=== PATIENT | female | born 1955 | race Caucasian/White ===

== ENCOUNTER → 2018-06-04 | Outpatient (CLI) | payer BC ==
[~2018-06-04] MED LIST: ASCO500; CELE200; CELE200 PO; FISH OIL 1,0001 EAC1 PO; Glucosamine &1 EACH; Glucosamine &1 EACH PO; MERIBIN5 MG; MULTI VITAMIN1 EACH; Multivitamin1 EAC1 PO; Sudogest30 MG; VITAMIN D31000 UNIT PO; Voltaren100 GM; ZYRTEC10 M1; ZYRTEC10 M1 PO
[2018-06-06 14:08] LABS: HPV 16 Negative (Negative); HPV 18 Negative (Negative); HPV OTHER HR TYPES Negative (Negative)
== END | disposition home or self-care (01) ==
LOC: LAB SHORT 19:02 → LAB 19:02
PROVIDERS: Obstetrics & Gynecology Gynecology
DX: Z12.4 Encounter for screening for malignant neoplasm of cervix (principal)
CPT/HCPCS: 87624; G0123

== ENCOUNTER 2019-01-23 11:42 | Day surgery (SDC) | payer BC ==
[~2019-01-23] VITALS: Ht 165.1 cm; Wt 60.0 kg
--- NOTE | 2019-01-23 14:27 | NUR ---
01/23/19 1427 Ximena Yuan DIVERTICULOSIS/HIGH FIBER DIET PAMPHLETS GIVEN TO THE PT.
== END 2019-01-23 14:15 | disposition home or self-care (01) ==
LOC: ORSCSDS 11:42
PROVIDERS: Internal Medicine Gastroenterology
PROC: 0DJD8ZZ Inspection of Lower Intestinal Tract, Via Natural or Artificial Opening Endoscopic (ICD-10-PCS; principal; 2019-01-23 13:00)
DX: Z12.11 Encounter for screening for malignant neoplasm of colon (principal); Z86.010 Personal history of colon polyps; K57.30 Diverticulosis of large intestine without perforation or abscess without bleeding; Z79.899 Other long term (current) drug therapy
CPT/HCPCS: J2704; J7120

== ENCOUNTER → 2019-04-11 | Outpatient (CLI) | payer BC | END | disposition home or self-care (01) | LOC: LAB SHORT 16:38 → LAB EV 16:38 | DX: N12 Tubulo-interstitial nephritis, not specified as acute or chronic (principal); B58.8 Toxoplasmosis with other organ involvement | CPT/HCPCS: 87077; 87086; 87186 ==

== ENCOUNTER → 2019-04-12 | Outpatient (CLI) | payer BC ==
[2019-04-12 11:04] LABS: BASOPHILS ABSOLUTE AUTO 0.03 K/mm3 (0.00-0.23); BASOPHILS PERCENT AUTO 0 % (0-2); EOSINOPHILS ABSOLUTE AUTO 0.15 K/mm3 (0.00-0.68); EOSINOPHILS PERCENT AUTO 2 % (0-6); Hematocrit 38.2 % (33.0-51.0); Hemoglobin 12.5 g/dL (11.5-16.0); IMMATURE GRAN ABSOLUTE AUTO 0.06 K/mm3 (0.00-0.10); IMMATURE GRAN PERCENT AUTO 1 % (0-1); LYMPHOCYTES ABSOLUTE AUTO 1.11 K/mm3 (0.84-5.20); LYMPHOCYTES PERCENT AUTO 14 % (21-46); MONOCYTES ABSOLUTE AUTO 0.91 K/mm3 (0.16-1.47); MONOCYTES PERCENT AUTO 11 % (4-13); Mean Corpuscular HGB 30.4 pg (26.0-34.0); Mean Corpuscular HGB Conc 32.7 g/dL (31.5-36.5); Mean Corpuscular Volume 93 fL (80-100); Mean Platelet Volume 11.3 fL (9.1-12.4); NEUTROPHILS ABSOLUTE AUTO 5.88 K/mm3 (1.96-9.15); NEUTROPHILS PERCENT AUTO 72 % (41-73); Platelet Count 290 K/mm3 (150-400); RDW Coefficient Variation 14.5 % (11.7-14.2); RDW Standard Deviation 48.7 fL (35.1-46.3); Red Blood Cell Count 4.11 M/mm3 (3.80-5.20); White Blood Cell Count 8.14 K/mm3 (4.00-11.30)
[2019-04-12 11:12] LABS: Alanine Aminotransfer (ALT/SGP 19 U/L (12-78); Albumin, Blood 3.7 g/dL (3.4-5.0); Albumin/Globulin Ratio 1.1 (0.8-1.8); Alk Phos 78 U/L (40-126); Anion Gap 11 mmol/L (6-16); Aspartate Aminotrans (AST/SGOT 17 U/L (12-37); Bilirubin, Total 0.4 mg/dL (0.1-1.0); Blood Urea Nitrogen 12 mg/dL (8-24); Bun/Creatinine Ratio 17.1 (12.0-20.0); CO2, Blood 26 mmol/L (21-32); Calcium, Blood 9.3 mg/dL (8.5-10.1); Chloride, Blood 105 mmol/L (98-108); Globulin, Blood 3.5 g/dL (2.2-4.0); Glomerular Filtration Rate >60 (60-); Glucose, Blood 84 mg/dL (70-99); Potassium, Blood 4.6 mmol/L (3.5-5.5); Sodium, Blood 142 mmol/L (136-145); Total Protein, Blood 7.2 g/dL (6.4-8.2)
== END | disposition home or self-care (01) ==
LOC: LAB SHORT 10:51 → LAB EV 10:51
PROVIDERS: General Practice
DX: B58.8 Toxoplasmosis with other organ involvement (principal)
CPT/HCPCS: 80053; 85025

== ENCOUNTER → 2019-10-31 | Outpatient (CLI) | payer BC | LOC: LAB EV 17:23 → LAB SHORT 17:23 | DX: N12 Tubulo-interstitial nephritis, not specified as acute or chronic (principal) | CPT/HCPCS: 87077; 87086; 87186 ==

== ENCOUNTER → 2020-01-20 | Outpatient (CLI) | payer BC ==
[2020-01-20 16:26] LABS: Source, Urine Clean Catch
[2020-01-20 17:24] LABS: Appearance, Urine Clear (Clear); Bilirubin, Urine Neg (Neg); Blood, Urine Neg (Neg); Color, Urine Yellow (P-Yellow); Glucose Qualitative, Urine Neg (Neg); Ketones, Urine Neg (Neg); Leukocyte Esterase, Urine Neg (Neg); Nitrite, Urine Neg (Neg); Protein, Urine Neg (Neg); Urobilinogen, Urine NORM (Normal)
== END | disposition home or self-care (01) ==
LOC: LAB 16:20 → LAB SHORT 16:20
PROVIDERS: Obstetrics & Gynecology
DX: Z09 Encounter for follow-up examination after completed treatment for conditions other than malignant neoplasm (principal); Z87.440 Personal history of urinary (tract) infections
CPT/HCPCS: 81003

== ENCOUNTER → 2020-02-18 | Outpatient (CLI) | payer BC ==
[2020-02-18 11:16] LABS: BASOPHILS ABSOLUTE AUTO 0.04 K/mm3 (0.00-0.23); BASOPHILS PERCENT AUTO 1 % (0-2); EOSINOPHILS ABSOLUTE AUTO 0.16 K/mm3 (0.00-0.68); EOSINOPHILS PERCENT AUTO 3 % (0-6); Hemoglobin 13.3 g/dL (11.5-16.0); IMMATURE GRAN ABSOLUTE AUTO 0.01 K/mm3 (0.00-0.10); IMMATURE GRAN PERCENT AUTO 0 % (0-1); LYMPHOCYTES ABSOLUTE AUTO 0.99 K/mm3 (0.84-5.20); LYMPHOCYTES PERCENT AUTO 18 % (21-46); MONOCYTES PERCENT AUTO 14 % (4-13); Mean Corpuscular HGB 30.8 pg (26.0-34.0); Mean Corpuscular HGB Conc 33.3 g/dL (31.5-36.5); Mean Corpuscular Volume 93 fL (80-100); Mean Platelet Volume 10.7 fL (9.1-12.4); NEUTROPHILS ABSOLUTE AUTO 3.57 K/mm3 (1.96-9.15); NEUTROPHILS PERCENT AUTO 64 % (41-73); Platelet Count 299 K/mm3 (150-400); RDW Coefficient Variation 13.6 % (11.7-14.2); RDW Standard Deviation 46.5 fL (35.1-46.3); Red Blood Cell Count 4.32 M/mm3 (3.80-5.20); White Blood Cell Count 5.57 K/mm3 (4.00-11.30)
[2020-02-18 11:52] LABS: Alanine Aminotransfer (ALT/SGP 30 U/L (12-78); Alk Phos 68 U/L (40-126); Amylase, Blood 47 U/L (25-115); Anion Gap 9 mmol/L (6-16); Aspartate Aminotrans (AST/SGOT 17 U/L (12-37); Bilirubin, Total 0.3 mg/dL (0.1-1.0); Blood Urea Nitrogen 11 mg/dL (8-24); Bun/Creatinine Ratio 13.9 (12.0-20.0); CO2, Blood 27 mmol/L (21-32); Calcium, Blood 9.8 mg/dL (8.5-10.1); Chloride, Blood 102 mmol/L (98-108); Creatinine, Blood 0.79 mg/dL (0.40-1.00); Globulin, Blood 4.1 g/dL (2.2-4.0); Glomerular Filtration Rate >60 (60-); Glucose, Blood 99 mg/dL (70-99); Potassium, Blood 4.2 mmol/L (3.5-5.5); Sodium, Blood 138 mmol/L (136-145); Total Protein, Blood 8.1 g/dL (6.4-8.2)
== END | disposition home or self-care (01) ==
LOC: LAB SHORT 11:09 → LAB EV 11:09
PROVIDERS: General Practice
DX: R10.32 Left lower quadrant pain (principal)
CPT/HCPCS: 80053; 82150; 85025

== ENCOUNTER → 2020-02-19 | Outpatient (CLI) | payer BC ==
[2020-02-21 01:05] LABS: ADENOVIRUS F 40/41 Not Detected (Not Detected); ASTROVIRUS Not Detected (Not Detected); C DIFFICILE TOXIN A/B Not Detected (Not Detected); CAMPYLOBACTER Not Detected (Not Detected); CRYPTOSPORIDIUM Not Detected (Not Detected); CYCLOSPORA CAYETANENSIS Not Detected (Not Detected); ENTAMOEBA HISTOLYTICA Not Detected (Not Detected); ENTEROAGGREGATIVE E COLI Not Detected (Not Detected); ENTEROPATHOGENIC E COLI Not Detected (Not Detected); ENTEROTOXIGENIC E COLI Not Detected (Not Detected); GIARDIA LAMBLIA Not Detected (Not Detected); NOROVIRUS GI/GII Not Detected (Not Detected); PLESIOMONAS SHIGELLOIDES Not Detected (Not Detected); ROTAVIRUS A Not Detected (Not Detected); SALMONELLA Not Detected (Not Detected); SAPOVIRUS Not Detected (Not Detected); SHIGA-TOXIN-PRODUCING E COLI Not Detected (Not Detected); SHIGELLA/ENTEROINVASIVE E COLI Not Detected (Not Detected); VIBRIO Not Detected (Not Detected); VIBRIO CHOLERAE Not Detected (Not Detected); YERSINIA ENTEROCOLITICA Not Detected (Not Detected)
== END | disposition home or self-care (01) ==
LOC: LAB SHORT 08:31 → LAB EV 08:31
PROVIDERS: General Practice
DX: K52.9 Noninfective gastroenteritis and colitis, unspecified (principal)
CPT/HCPCS: 0097U

== ENCOUNTER 2020-04-12 00:42 | Emergency (ER) | payer BC ==
[~2020-04-12] VITALS: Ht 165.1 cm; Wt 61.2 kg
[~2020-04-12 00:42] MED LIST changes: -ZYRTEC10 M1 PO
[2020-04-12 01:21] LABS: BASOPHILS ABSOLUTE AUTO 0.03 K/mm3 (0.00-0.23); BASOPHILS PERCENT AUTO 1 % (0-2); EOSINOPHILS ABSOLUTE AUTO 0.32 K/mm3 (0.00-0.68); EOSINOPHILS PERCENT AUTO 6 % (0-6); Hematocrit 39.6 % (33.0-51.0); Hemoglobin 13.1 g/dL (11.5-16.0); IMMATURE GRAN ABSOLUTE AUTO 0.01 K/mm3 (0.00-0.10); IMMATURE GRAN PERCENT AUTO 0 % (0-1); LYMPHOCYTES ABSOLUTE AUTO 1.51 K/mm3 (0.84-5.20); LYMPHOCYTES PERCENT AUTO 27 % (21-46); MONOCYTES PERCENT AUTO 18 % (4-13); Mean Corpuscular HGB 30.5 pg (26.0-34.0); Mean Corpuscular HGB Conc 33.1 g/dL (31.5-36.5); Mean Corpuscular Volume 92 fL (80-100); Mean Platelet Volume 10.6 fL (9.1-12.4); NEUTROPHILS ABSOLUTE AUTO 2.81 K/mm3 (1.96-9.15); NEUTROPHILS PERCENT AUTO 50 % (41-73); Platelet Count 293 K/mm3 (150-400); RDW Coefficient Variation 13.6 % (11.7-14.2); RDW Standard Deviation 46.2 fL (35.1-46.3); Red Blood Cell Count 4.29 M/mm3 (3.80-5.20); White Blood Cell Count 5.68 K/mm3 (4.00-11.30)
[2020-04-12] MEDS ORDERED: AMOCLA875 PO (01:28)
[2020-04-12 01:38] LABS: Alanine Aminotransfer (ALT/SGP 21 U/L (12-78); Albumin, Blood 3.4 g/dL (3.4-5.0); Alk Phos 62 U/L (50-136); Anion Gap 5 mmol/L (6-16); Aspartate Aminotrans (AST/SGOT 12 U/L (12-37); Bilirubin, Total 0.2 mg/dL (0.1-1.0); Blood Urea Nitrogen 19 mg/dL (8-24); Bun/Creatinine Ratio 22.1 (12.0-20.0); CO2, Blood 27 mmol/L (21-32); Calcium, Blood 8.8 mg/dL (8.5-10.1); Chloride, Blood 107 mmol/L (98-108); Creatinine, Blood 0.86 mg/dL (0.40-1.00); Globulin, Blood 3.3 g/dL (2.2-4.0); Glomerular Filtration Rate >60 (60-); Glucose, Blood 103 mg/dL (70-99); Potassium, Blood 3.8 mmol/L (3.5-5.5); Sodium, Blood 139 mmol/L (136-145); Total Protein, Blood 6.7 g/dL (6.4-8.2); Troponin I <0.015 ng/mL (0.000-0.040)
[2020-04-12] MEDS ORDERED: AMOX-CLAV 875-1 EAC3 PO (21:31)
[2020-04-12] MEDS ORDERED: TIZANIDINE HCL2 M3 PO (21:33)
[2020-04-12] MEDS ORDERED: ZYRTEC10 M1 PO (21:58)
== END 2020-04-12 03:54 | disposition home or self-care (01) ==
LOC: ER 00:42
PROVIDERS: Emergency Medicine
DX: G43.109 Migraine with aura, not intractable, without status migrainosus (principal); Z79.899 Other long term (current) drug therapy; Z88.8 Allergy status to other drugs, medicaments and biological substances
CPT/HCPCS: 70470; 70496; 70498; 80053; 84484; 85025; 93005; 93010; 96365; 96366; 96372-59; 96375; 99285-25; J1200; J3030; J3475; J7030; Q9967

== ENCOUNTER 2020-04-12 09:38 | Emergency (ER) | payer BC ==
[~2020-04-12] VITALS: Ht 165.1 cm; Wt 59.0 kg
[~2020-04-12 09:38] MED LIST changes: +AMOCLA875 PO
[2020-04-12 10:39] LABS: BASOPHILS ABSOLUTE AUTO 0.03 K/mm3 (0.00-0.23); BASOPHILS PERCENT AUTO 1 % (0-2); EOSINOPHILS ABSOLUTE AUTO 0.06 K/mm3 (0.00-0.68); EOSINOPHILS PERCENT AUTO 1 % (0-6); Hematocrit 42.1 % (33.0-51.0); Hemoglobin 14.1 g/dL (11.5-16.0); IMMATURE GRAN ABSOLUTE AUTO 0.02 K/mm3 (0.00-0.10); IMMATURE GRAN PERCENT AUTO 0 % (0-1); LYMPHOCYTES ABSOLUTE AUTO 0.93 K/mm3 (0.84-5.20); LYMPHOCYTES PERCENT AUTO 15 % (21-46); MONOCYTES ABSOLUTE AUTO 0.66 K/mm3 (0.16-1.47); MONOCYTES PERCENT AUTO 11 % (4-13); Mean Corpuscular HGB 30.9 pg (26.0-34.0); Mean Corpuscular HGB Conc 33.5 g/dL (31.5-36.5); Mean Corpuscular Volume 92 fL (80-100); Mean Platelet Volume 10.7 fL (9.1-12.4); NEUTROPHILS ABSOLUTE AUTO 4.53 K/mm3 (1.96-9.15); NEUTROPHILS PERCENT AUTO 73 % (41-73); Platelet Count 292 K/mm3 (150-400); RDW Coefficient Variation 13.7 % (11.7-14.2); RDW Standard Deviation 46.6 fL (35.1-46.3); Red Blood Cell Count 4.57 M/mm3 (3.80-5.20); White Blood Cell Count 6.23 K/mm3 (4.00-11.30)
[2020-04-12 10:40] LABS: Calcium, Ionized (POC) 1.16 mmol/L (1.10-1.46); Chloride (POC) 104 mmol/L (98-108); Creatinine (POC) 0.6 mg/dL (0.6-1.0); Glucose (ISTAT POC) 102 mg/dL (70-99); Hemoglobin (POC) 14.3 g/dL (12.0-16.0); Potassium (POC) 3.9 mmol/L (3.5-5.5); Sodium (POC) 139 mmol/L (135-148); Total CO2 (POC) 23 mmol/L (21-32)
[2020-04-12 11:01] LABS: Alanine Aminotransfer (ALT/SGP 22 U/L (12-78); Albumin, Blood 3.7 g/dL (3.4-5.0); Alk Phos 67 U/L (50-136); Anion Gap 5 mmol/L (6-16); Aspartate Aminotrans (AST/SGOT 16 U/L (12-37); Bilirubin, Total 0.3 mg/dL (0.1-1.0); Blood Urea Nitrogen 13 mg/dL (8-24); Bun/Creatinine Ratio 19.7 (12.0-20.0); CO2, Blood 27 mmol/L (21-32); Chloride, Blood 108 mmol/L (98-108); Creatinine, Blood 0.66 mg/dL (0.40-1.00); Globulin, Blood 3.6 g/dL (2.2-4.0); Glomerular Filtration Rate >60 (60-); Glucose, Blood 95 mg/dL (70-99); Potassium, Blood 3.9 mmol/L (3.5-5.5); Sodium, Blood 140 mmol/L (136-145); Total Protein, Blood 7.3 g/dL (6.4-8.2)
[2020-04-12] MEDS ORDERED: AMOX-CLAV 875-1 EAC3 PO (21:31)
[2020-04-12] MEDS ORDERED: TIZANIDINE HCL2 M3 PO (21:33)
[2020-04-12] MEDS ORDERED: ZYRTEC10 M1 PO (21:58)
== END 2020-04-12 12:10 | disposition home or self-care (01) ==
LOC: ER 09:38
PROVIDERS: Emergency Medicine
DX: G43.409 Hemiplegic migraine, not intractable, without status migrainosus (principal); Z88.8 Allergy status to other drugs, medicaments and biological substances; Z79.899 Other long term (current) drug therapy
CPT/HCPCS: 36415; 80047; 80053; 85014; 85025; 93005; 93010; 96361; 96374; 96375; 99284-25; J0780; J1100; J7030

== ENCOUNTER 2020-04-12 20:34 | Inpatient (IN) | payer BC ==
[~2020-04-12] VITALS: Ht 165.1 cm; Wt 66.6 kg
[2020-04-12 21:17] LABS: BASOPHILS PERCENT AUTO 0 % (0-2); EOSINOPHILS PERCENT AUTO 0 % (0-6); Hematocrit 42.6 % (33.0-51.0); Hemoglobin 14.2 g/dL (11.5-16.0); IMMATURE GRAN ABSOLUTE AUTO 0.01 K/mm3 (0.00-0.10); IMMATURE GRAN PERCENT AUTO 0 % (0-1); LYMPHOCYTES ABSOLUTE AUTO 0.52 K/mm3 (0.84-5.20); LYMPHOCYTES PERCENT AUTO 7 % (21-46); MONOCYTES ABSOLUTE AUTO 0.13 K/mm3 (0.16-1.47); MONOCYTES PERCENT AUTO 2 % (4-13); Mean Corpuscular HGB 30.4 pg (26.0-34.0); Mean Corpuscular HGB Conc 33.3 g/dL (31.5-36.5); Mean Corpuscular Volume 91 fL (80-100); Mean Platelet Volume 10.6 fL (9.1-12.4); NEUTROPHILS ABSOLUTE AUTO 7.31 K/mm3 (1.96-9.15); NEUTROPHILS PERCENT AUTO 92 % (41-73); Platelet Count 322 K/mm3 (150-400); RDW Coefficient Variation 13.8 % (11.7-14.2); RDW Standard Deviation 46.8 fL (35.1-46.3); Red Blood Cell Count 4.67 M/mm3 (3.80-5.20); White Blood Cell Count 7.97 K/mm3 (4.00-11.30)
[2020-04-12] MEDS ORDERED: AMOX-CLAV 875-1 EAC3 PO (21:31)
[2020-04-12] MEDS ORDERED: TIZANIDINE HCL2 M3 PO (21:33)
[2020-04-12 21:38] LABS: Alanine Aminotransfer (ALT/SGP 23 U/L (12-78); Albumin, Blood 3.9 g/dL (3.4-5.0); Albumin/Globulin Ratio 1.1 (0.8-1.8); Alk Phos 70 U/L (50-136); Anion Gap 9 mmol/L (6-16); Aspartate Aminotrans (AST/SGOT 16 U/L (12-37); Bilirubin, Total 0.3 mg/dL (0.1-1.0); Blood Urea Nitrogen 15 mg/dL (8-24); Bun/Creatinine Ratio 25.5 (12.0-20.0); CO2, Blood 23 mmol/L (21-32); Calcium, Blood 9.7 mg/dL (8.5-10.1); Chloride, Blood 111 mmol/L (98-108); Creatinine, Blood 0.59 mg/dL (0.40-1.00); Globulin, Blood 3.6 g/dL (2.2-4.0); Glomerular Filtration Rate >60 (60-); Glucose, Blood 164 mg/dL (70-99); Potassium, Blood 3.8 mmol/L (3.5-5.5); Sodium, Blood 143 mmol/L (136-145); Total Protein, Blood 7.5 g/dL (6.4-8.2)
[2020-04-12] MEDS ORDERED: ZYRTEC10 M1 PO (21:58)
[2020-04-13 05:16] LABS: BASOPHILS PERCENT AUTO 0 % (0-2); EOSINOPHILS PERCENT AUTO 0 % (0-6); Hemoglobin 13.4 g/dL (11.5-16.0); IMMATURE GRAN ABSOLUTE AUTO 0.02 K/mm3 (0.00-0.10); IMMATURE GRAN PERCENT AUTO 0 % (0-1); LYMPHOCYTES ABSOLUTE AUTO 0.47 K/mm3 (0.84-5.20); LYMPHOCYTES PERCENT AUTO 7 % (21-46); MONOCYTES ABSOLUTE AUTO 0.13 K/mm3 (0.16-1.47); MONOCYTES PERCENT AUTO 2 % (4-13); Mean Corpuscular HGB 30.2 pg (26.0-34.0); Mean Corpuscular HGB Conc 32.7 g/dL (31.5-36.5); Mean Corpuscular Volume 92 fL (80-100); Mean Platelet Volume 10.6 fL (9.1-12.4); NEUTROPHILS PERCENT AUTO 91 % (41-73); Platelet Count 269 K/mm3 (150-400); RDW Coefficient Variation 13.7 % (11.7-14.2); Red Blood Cell Count 4.44 M/mm3 (3.80-5.20); White Blood Cell Count 6.92 K/mm3 (4.00-11.30)
[2020-04-13 05:36] LABS: Anion Gap 5 mmol/L (6-16); Blood Urea Nitrogen 17 mg/dL (8-24); Bun/Creatinine Ratio 25.9 (12.0-20.0); CO2, Blood 26 mmol/L (21-32); Calcium, Blood 9.7 mg/dL (8.5-10.1); Chloride, Blood 110 mmol/L (98-108); Creatinine, Blood 0.66 mg/dL (0.40-1.00); Glomerular Filtration Rate >60 (60-); Glucose, Blood 151 mg/dL (70-99); Potassium, Blood 4.3 mmol/L (3.5-5.5); Sodium, Blood 141 mmol/L (136-145)
--- NOTE | 2020-04-13 07:47 | NUR ---
04/13/20 0545 PT SLEEPING SINCE BEING MEDICATED WITH PAIN MED FOR NECK AND POSTERIOR HEAD PAIN. ONLY TAKING SIPS OF FLUIDS ORALLY. VITALS STABLE. NO CHANGE IN NEURO STATUS THIS AM. CALL REY WITHIN REACH AND BED ALARM ON. VOIDED SMALL AMT OF URINE IN BEDPAN. HEART MONITOR AND PULSE OXIMETER WITHIN NORMAL LIMITS.
--- NOTE | 2020-04-13 13:00 | NUR ---
SPEECH EVALUATION: SPOKE WITH DR. LAGUNAS ABOUT THE PATIENT AND HUSBANDS REPORT THAT SHE HAS HAD DIFFICULTY SWALLOWING AT HOME AND WILL COUGH ON HER SPIT AND WATER. PATIENT CONTINUES TO HAVE A LEFT SIDED DROOP. PATIENT IS ABLE TO MOVE TONGUE SIDE TO SIDE WITHOUT DIFFICULTY. DISCUSSED THIS INFORMATION WITH DR. LAGUNAS. NEW ORDER FOR SWALLOW EVALUATION.
[2020-04-13 13:42] LABS: CHOL/HDL RATIO 4.9; Cholesterol 255 mg/dL (50-200); HDL Cholesterol 52 mg/dL (>39); LDL/HDL RATIO 3.5; Low Density Lipoprotein Chol 180 mg/dL (0-110); Triglycerides 114 mg/dL (30-160); Very Low Density Lipoprot Chol 22 mg/dL (6-32)
--- NOTE | 2020-04-13 15:31 | NUR ---
Bladder scan amount was [id number]
--- NOTE | 2020-04-13 15:34 | NUR ---
echocardiogram complete
--- NOTE | 2020-04-13 19:31 | NUR ---
END OF SHIFT SUMMARY: PATIENT DENIED PAIN THROUGHOUT SHIFT. PATIENT CONTINUED TO HAVE NO MOVEMENT IN THE LEFT ARM AND LEFT LEG THROUGHOUT THE SHIFT. PATIENT REPORTED SHE COULD FEEL THE RN'S COLD HANDS ONLY ON THE EXTREMITIES. PATIENT CONTINUED TO HAVE LEFT SIDED DROOP OF THE FACE. PATIENT ABLE TO SPEAK WITH A SLURRED SPEECH. SHE IS ALERT AND ORIENTED. PATIENT IS ANXIOUS AND TEARFUL AT TIMES RELATED TO HER SITUATION. PROVIDED ENCOURAGEMENT AND SUPPORT. PATIENT FOLLOWED NEW SWALLOW PRECAUTIONS WITHOUT DIFFICULTY. SPOKE WITH DR. LAGUNAS MULTIPLE TIMES TO DISCUSS ORDERS. (SEE ORDER LIST). DR. GRIFFIN ROUNDED ON THE PATIENT THIS EVENING. BOTH THE PATIENT AND ARE VERY APPRECIATIVE OF THE CARE RECEIVED HERE. PATIENT WANTED TO MAKE SURE THAT IT WAS KNOWN THAT SHE USES A VAGINAL HORMONE CREAM AT HOME. NIGHT RN FERCHO MUJICA.
--- NOTE | 2020-04-14 04:58 | NUR ---
SHIFT SUMMARY: VSS. AFEB. AAOX3. SPEECH SLIGHTLY SLURRED. L UPPER AND LOWER EXTREMITY FLACCID. DENIES N/T. PERRL. EYES TRACK OBJECTS AND PT DENIES VISION CHANGES. SWALLOWED MEDS IN APPLESAUCE AND WATER WITHOUT COUGHING. MED X 1 FOR HEADACHE AFFECTING BACK OF HEAD AND NECK. PT APPEARS TO BE SLEEPING CURRENTLY. UP TO BSC W/2 MAX ASSIST, PIVOTING ON R FOOT, GAIT BELT. BED ALARM ON, CALL BUTTON IN REACH. CALLING APPROPRIATELY. WILL CONT TO MONITOR.
[2020-04-14] MEDS ORDERED: ESTRADIOL42.5 GM VAG (06:34)
--- NOTE | 2020-04-14 09:57 | NUR ---
Permission for care Patient gave Julianne Chacon. SRN, permission to assist with care on 04/14/2020.
--- NOTE | 2020-04-14 16:21 | NUR ---
SUMMARY PT IS A/O X4. DX CVA. SARAH, L FACIAL DROOP, SPEECH THICK/SLURRED. MINIMAL GROSS MOVEMENT L ARM, FLACCID L LEG. SHE IS ABLE TO STAND/PIVOT [address] [facility] THIS AM, NO CHANGE CONTINUES SOFT DIET w THIN LIQUIDS, SHE NEEDS SUPERVISION w MEALS. SHE PARTICIPATED w PHYTHER TODAY. POSITIVE, PLEASANT AFFECT. @ BEDSIDE T/O DAY. VSS.
--- NOTE | 2020-04-15 05:15 | NUR ---
SHIFT SUMMARY: VSS. AFEB. AAOX3. ABLE TO COMMUNICATE NEEDS. NEURO CHECKS UNCHANGED FROM YESTERDAY. CONT W/ FLACCID L UPPER AND LOWER EXTREMITIES. SLIGHT MOVEMENT AT THE SHOULDER AND THE HIP. DENIES N/T IN EXT. REPORTS TINGLING IN L SIDE OF FACE. SPEECH CONT TO BE SLIGHTLY SLURRED BUT COMPREHENSIBLE. PERRL, ABLE TO TRACK OBJECTS. DENIES HEADACHE. DYSPHAGIA PRECAUTIONS IN PLACE, NO COUGHING W/ PO INTAKE. LSCTA. CONTINENT. T/F W/ 2 MAX ASSIST TO BSC. NO ACUTE CHANGES TONIGHT. WILL CONT TO MONITOR.
--- NOTE | 2020-04-15 07:45 | NUR ---
ASSUMED CARE OF PT- BEDSIDE REPORT COMPLETED WITH NIGHT RN PHILIP. PER REPORT PT ADMITTED FOR NEW CVA. PT IS A 2P MAX ASSIST TO THE BEDSIDE COMMODE, PT CAN ONLY VOID WHEN STAFF ASSIST HER TO BSC. STRAIGHT CATH ORDER FOR BLADDER SCAN VOL GREATER THAN 500ML. PT HAS LEFT SIDED WEAKNESS LEFT FACIAL DROOP AND SOME SLIGHTLY SLURRED SPEACH. PT AWAKE AND PARTICIPATED IN BEDSID REPORT. PT ON TELE AND HAS IVF RUNNING IN THE RIGHT AC. CALL LIGHT IN REACH, ASSISTED TO BSC AT SHIFT CHANGE. NO S&S OF DIOSTRESS NOTED AT THIS TIME WILL CTM.
--- NOTE | 2020-04-15 19:42 | NUR ---
SHIFT SUMMARY- PT ALERT AND ORIENTED, SPOUSE AT THE BEDSIDE IS VERY INVOLVED IN THE PT CARE. PT HAS SHOWN SOME IMPROVEMENT WITH HER MOVEMENT OF THE LEFT SIDE OF HER BODY ACHIEVINE GROSS MOTOR MOVEMENT FOR THE UPPER PART OF EACH. Q4 NEURO CHECKS COMPLETED. PT HAS DENIED THE NEED FOR PAIN MEDICATION T/O THE SHIFT. DR LAGUNAS CAME TO SEE THE PT. PT STATED IT WAS OK FOR HER TO TAKE HER VITAMINS, DR DID NOT ORDER THEM YET. PT STATED IN BEDSIDE REPORT SHE TOOK THEM. NO VERBAL ORDER FROM THE DR FOR THEM EITHER. NIGHT RN AWARE. BEDSIDE REPORT COMPLETED WITH NIGHT RN CARE ROUNDING COMPLETED AT THIS TIME WELL.
--- NOTE | 2020-04-16 04:09 | NUR ---
SHIFT SUMMARY A/O, ABLE TO MAKE NEEDS KNOWN. COOPERATIVE WITH CARE. CALLS AND ANSWERS QUESTIONS APPROPRIATELY. NO C/O PAIN/DISCOMFORT. NEW IV TO RFA PLACED. MAX ASSIST STAND PIVOT TO BSC. SLIGHT GROSS MOVEMENT TO L SIDED EXTREMITIES. NO ACUTE CHANGES NOTED. VSS/AFEBRILE. TELE RUNNING SR IN 80's. BED REAMINS IN LOWEST POSITION. CALL LIGHT AND BELONGINGS WITHIN REACH. WCTM. REPORT TO ONCOMING RN.
--- NOTE | 2020-04-16 17:52 | NUR ---
SHIFT SUMMARY- PT ALERT AND ORIENTED 2P MAX ASSIST WITH TRANSFERS. PT CONTINENT OF BLADDER, PT HAS NOT HAD A BM SINCE HER ADMIT ON SATURDAY. WILL TALK TO DR TOMORROW IF THE PT HAS STILL NOT HAD A BM. WILL ATTEMPT TO PROVIDE THE PT WITH PRUNE JUICE THIS EVENING. PT SPOUSE HAS BEEN AT THE BEDSIDE NON STOP MUCH POSSIBLE AND IS A GOOD SUPPORTER FOR THE PT TO IMPROVE. PT HAS DENIED THE NEED FOR PAIN MEDICATION. SHE HAS DEVELOPED SOME GROSS MOTOR MOVEMENT OF BOTH EXTREMITIES. PT CAN ADDUCT THE LEFT ARM NOW WHERE SHE COULD NOT YESTERDAY. PT CAN SHRUG THE LEFT SHOULDER TODAY WELL. LEFT LEG CAN OCCASSIONALLY BEAR WEIGHT WELL. MOST OF THE TIME PT IS UNABLE TO BEAR WEIGHT ON THAT LEG THOUGH. PT HAS BEEN TEARFUL TODAY BUT SEEMS TO BE IN GOOD SPIRITS. PT IS CURRENTLY UP IN THE RECLINER WITH HER CALL LIGHT IN REACH AND SPOUSE AT HER SIDE.
--- NOTE | 2020-04-17 03:43 | NUR ---
SHIFT SUMMARY A/O, ABLE TO MAKE NEEDS KNOWN. COOPERATIVE WITH CARE. CALLS AND ANSWERS QUESTIONS APPROPRIATELY. NO C/O PAIN/DISCOMFORT. APPEARED TO REST OFF AND ON T/O NIGHT. APPEARS TO BE GAINING STRENGTH TO L SIDE. REQUIRES 2P STAND/PIVOT ASSIST WITH GAIT BELT TO BSC. VSS/AFEBRILE. NO ACUTE CHANGES NOTED. BED REAMINED IN LOWEST POSITION. CALL LIGHT AND BELONGINGS WITHIN REACH. WCTM. REPORT TO ONCOMING RN.
--- NOTE | 2020-04-17 18:46 | NUR ---
SHIFT SUMMARY- PT ALERT AND ORIENTED, RECIEVED A FULL BED BATH TODAY ABX COMPLETED PER DR JANNETH WALL STATED 10 DAY CORSE WITH START DATE OF 04-06-20. TELE DC'D. PT AWAITING PLACEMENT IN IRU IN [place]. SPOUSE IS AWARE AND IS WILLING TO DO ANYTHING THE PT NEEDS, HOWEVER THE PT IS RELUCTANT TO ASK HIM FOR ANY HELP. PT IS A 2P MAX ASSIST WITH TRANSFERS TO THE RECLINER AND BSC. PT C/O BACK PAIN THIS MORNING PROVIDED HER WITH PRUNE JUICE APPLEJUICE AND BUTTER COCKTAIL AND THE PT HAD A SOLID STOOL A RESULT. MEDICATED WITH TYLENOL WELL. PT STATED IT IS MUCH BETTER NOW. PT RECIEVED A FULL BED BATH TODAY.
--- NOTE | 2020-04-18 03:44 | NUR ---
SHIFT SUMMARY A/O, ABLE TO MAKE NEEDS KNOWN. COOPERATIVE WITH CARE. CALLS AND ANSWERS QUESTIONS APPROPRIATELY. NO C/O DISCOMFORT TO BACK; MEDICATED PER EMAR. APPEARED TO REST OFF AND ON T/O NIGHT. CONTINUES TO REQUIRE 2P STAND/PIVOT MAX ASSIST TO BSC/CHAIR. EAGER FOR TRANSFER TO IRU FOR STROKE REHAB. NO ACUTE CHANGES NOTED. BED REMAINS IN LOWEST POSITION. CALL LIGHT AND BELONGINGS WITHIN REACH. WCTM. REPORT TO ONCSAVI RN.
[2020-04-18 15:15] LABS: Influenza A, PCR Negative (NEGATIVE); Influenza B, PCR Negative (NEGATIVE); Resp Syncytial Virus, PCR Negative (NEGATIVE); SARS-Cov-2 (COVID-19) PCR, MMC Negative (NEGATIVE)
--- NOTE | 2020-04-18 18:38 | NUR ---
SHIFT SUMMARY TENNILLE COMPLAINED OF PAIN IN HER NECK, GOT HEAT PACK AND TYLENOL TO GOOD EFFECT. TOOK PILLS IN APPLESAUCE ONE AT A TIME. UP TO CHAIR FOR MEALS. UP TO BSC WITH AO2 AND GAIT BELT. VISITED MOST OF THE DAY. HAD CAROTID ULTRASOUND. CALL LIGHT IN REACH, [facility]
--- NOTE | 2020-04-19 04:55 | NUR ---
SHIFT SUMMARY NO ACUTE CHANGES THIS SHIFT. AOX4. L FACIAL DROOP, L SIDE WEAKNESS, L ARM FLACCID-ABLE TO GROSSLY MOVE L ARM c RIGHT HAND, REPORTS SHE HAS GROSS MOVEMENT c LLE WHILE LYING IN BED. DENIES N/V, DYSPNEA. REPORTS GENERALIZED CHRONIC PAIN FROM ARTHRITIS, MEDICATED c CELEBREX PER ORDERS & STATES RELIEF. MAX 2 ASSIST c GAIT BELT. TOOK PILLS WHOLE 1 @ A TIME IN APPLESAUCE. PLAN TO DC TODAY TO REHAB FACILITY. CALL LIGHT IN REACH. WCTM.
[2020-04-19] MEDS ORDERED: ASPI81CH PO (11:53)
[2020-04-19] MEDS ORDERED: ATOR40TA PO (11:53)
--- NOTE | 2020-04-19 18:49 | NUR ---
SHIFT SUMMARY PT IS AOX4 AND PLEASANT. PT DENIES PAIN, N/V, SOB. PT IS A TWO PERSON ASSIST FOR TRANSFERS. PHYSICAL THERAPY WORKED WITH PT TODAY. PLAN IS TO DC/TRANSFER TO [facility] TOMORROW MORNING. PT VISITED TODAY. PT IN CHAIR FOR MAJORITY OF SHIFT. PT CURRENTLY IN CHAIR, CALL LIGHT IN REACH.
--- NOTE | 2020-04-20 04:34 | NUR ---
SHIFT SUMMARY NO ACUTE CHANGES THIS SHIFT. AOX4. VSS, AFEBRILE. L ARM FLACCID. HAS GROSS MOVEMENT c LLE WHILE LYING IN BED. MAX 2 ASSIST c GAIT BELT FOR TRANSFERS. PLAN TO DC TO [facility] THIS AM AROUND 0900. CALL LIGHT IN REACH & PT ABLE TO MAKE NEEDS KNOWN.
--- NOTE | 2020-04-20 09:58 | NUR ---
REPORT CALLED TO RN AT [facility]HAB [facility]ENTER
== END 2020-04-20 09:14 | DRG 65 ==
LOC: ER 20:34 → MEDS 20:35 → ENPENDDIS 04-19 12:39 → MEDS 04-20 09:14
PROVIDERS: Emergency Medicine; Internal Medicine; Nurse Practitioner Acute Care; ADMIT Internal Medicine
DX: I63.9 Cerebral infarction, unspecified (principal); G81.94 Hemiplegia, unspecified affecting left nondominant side; R29.810 Facial weakness; E78.5 Hyperlipidemia, unspecified; I10 Essential (primary) hypertension; K52.9 Noninfective gastroenteritis and colitis, unspecified; R47.1 Dysarthria and anarthria; Z91.14 Patient's other noncompliance with medication regimen; E78.00 Pure hypercholesterolemia, unspecified; G43.61 Persistent migraine aura with cerebral infarction, intractable
CPT/HCPCS: 0241U; 36415; 70551; 80048; 80053; 80061; 82947; 83036; 85025; 92526; 92610; 93306; 93880; 94762; 96372; 96374; 96375; 97110; 97112; 97116; 97163; 97166; 97530; 97535; 99284-25; A9270; A9270-GY; G0378; J0780; J1100; J1170; J1200; J1650; J1885; J7030

== ENCOUNTER → 2023-12-20 | Outpatient (CLI) | payer MEDICARE ==
[~2023-12-20] MED LIST changes: +AMOX-CLAV 875-1 EAC3 PO; +ASPI81CH PO; +ATOR40TA PO; +ESTRADIOL42.5 GM VAG; +TIZANIDINE HCL2 M3 PO; +ZYRTEC10 M1 PO
[2023-12-21 09:39] LABS: Bacterial Vaginosis PCR Negative (NEGATIVE); Candida Group, PCR NOT DETECTED (NOT DETECT); Candida glabrata-krusei, PCR NOT DETECTED (NOT DETECT)
== END ==
LOC: LAB 13:12 → LAB SHORT 13:12
PROVIDERS: Family Medicine
DX: N90.89 Other specified noninflammatory disorders of vulva and perineum (principal)
CPT/HCPCS: 87481; 87661; 87801